=== PATIENT | female | born 2000 | race Asian ===

== ENCOUNTER 2023-11-06 14:30 | Outpatient (REF) | payer OTHER, SELFPAY ==
[2023-11-07 03:37] LABS: CT PCR NOT DETECTED (Not Detect.); NG PCR NOT DETECTED (Not Detect.)
[2023-11-07 11:12] LABS: BV Int Neg Control Negative (Negative); BV Int Pos Control Positive (Positive)
== END 2023-11-06 14:31 | disposition home or self-care (01) ==
LOC: HO.LNP 14:30
PROVIDERS: PCP Pediatrics; Visit Provider Advanced Practice Midwife
DX: Z01.419 Encounter for gynecological examination (general) (routine) without abnormal findings (principal); Z20.2 Contact with and (suspected) exposure to infections with a predominantly sexual mode of transmission
CPT/HCPCS: 0353U; 87480; 87510; 87660; 88142

== ENCOUNTER 2023-11-06 14:30 | Outpatient (AMB) | payer OTHER, SELFPAY ==
--- NOTE | 2023-11-06 14:34 | A.OFFVIS_ITS ---
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 She does not want implants and she does not want any IUD inside her she is on control pills but she keeps forgetting and taking them at different times she is here with her mother who accompanied her younger sister for visit recently as well. She does not want to have a baby any time soon she is sexually active she says the last time she had sex was a week ago before her periods started her periods started on October 31 it started a little bit before the last row of pills in the pill pack she is taking she says she has been trying to be better about taking the pills this month but she wants Depo-Provera she says her. Before this was at the end of August sometime after [place]. She also has something that has like a skin tag on her labia that she wants to show me and see if it can be cut off. She was with her mother throughout the visit. She is also interested in STD testing [facility], [facility] Social History (Updated 11/06/23 @ 14:39 by TANNA Santiago) Substance Use Type: Marijuana Female Reproductive History Menstrual Age of Menarche: 14 Duration of menses: other Date of last menstrual period: 10/31/23 control method: pills Total pregnancies: 0 Physical Exam Vital Signs: Last Vital Signs BP 102/60 11/06/23 14:36 BMI result Body Mass Index 19.0 Const General: healthy appearing, comfortable, no acute distress, well developed and alert Nutritional Appearance: average body habitus Orientation/consciousness: patient oriented x3 Limitations: no limitations HEENT Head: Yes normocephalic Neck Neck: Yes normal visual inspection Thyroid: Thyroid normal Chest Chest palpation & inspection: normal inspection of the chest Breast/axilla inspection: normal inspection of the breasts and normal inspection of the axillae Breast/axilla palpation: normal palpation of the breasts and normal palpation of the axillae Resp Effort & Inspection: normal respiratory effort GI Inspection: Yes normal to inspection, No Abdominal wall edema and No distended Palpation (GI): Soft to palpation and nontender Other: Normal external exam with the exception of a 3 cm round soft pedunculated sac- like growth to the left of her labia majora that has skin texture and coloration consistent with the labia majora. It is nontender not inflamed. Vagina pink and moist with moderate menses. Cervix nulliparous gently absorbed some menstrual blood with cotton swab in attempt to do Pap smear and testing for STIs. Cervix is nulliparous long close thick mobile nontender uterus small midposition nontender good tone with Kegel. General: Yes bladder normal to palpation External Female Exam: normal external appearance and normal appearance of the urethra Speculum Exam - Vagina: normal appearance of the vagina, normal palpation, normal vaginal discharge, vaginal bleeding (Consistent with menses) and other (3 cm round pedunculated growth consistent with labia majora skin, left side) Speculum Exam - Cervix: normal appearance of the cervix, normal palpation and nontender Bimanual exam- vagina & uterus: normal bimanual exam, normal palpation, uterine size normal, bladder normal to palpation, consistency normal, normal palpation, uterine mobility normal, uterine shape normal, No Cervical tenderness present, non-tender and no cervical motion tenderness Bimanual Exam- Adnexa, other: normal adnexae, no masses, normal and No adnexal tenderness OB/external & speculum: vaginal bleeding (Consistent with menses) Neuro General: patient oriented x3 Assessment & Plan Assessment & Plan (1) Encounter for screening examination for sexually transmitted disease: Code(s): Z11.3 - Encounter for screening for infections with a predominantly sexual mode of transmission (2) Abnormal skin growth: Code(s): D49.2 - Neoplasm of unspecified behavior of bone, soft tissue, and skin (3) Cervical cancer screening: Code(s): Z12.4 - Encounter for screening for malignant neoplasm of cervix (4) Well woman exam with routine gynecological exam: Code(s): Z01.419 - Encounter for gynecological examination (general) (routine) without abnormal findings (5) control counseling: Code(s): Z30.09 - Encounter for other general counseling and advice on contraception (6) Counseling for initiation of control method: Code(s): Z30.09 - Encounter for other general counseling and advice on contraception Plan -----Discussed in this visit the following: healthy balanced diet, regular and consistent exercise, getting recommended health screens, doing the best she can for her particular health concerns, kegel exercises, pap smear screening and followup recommendations, mammography screening and SBE, normal changes in cycles in her life stage--- .-I reviewed with the patient, all of the currently common used methods of control that are available. We reviewed how they work in the body, how they are taken, common side effects, uncommon side effects, precautions, and contraindications. -Discussed also factors that influence their effectiveness and use, and womens satisfaction with the method. -Discussed how each are used, and drawbacks of each method as well. -Methods covered included: condoms, control pills, control patches, control rings, Depo-Provera, Nexplanon, Mirena and Kyleena IUDs, and ParaGard IUDs. She was pretty clear she did not want a Nexplanon or any of the IUDs and she has not been doing well on remembering the pills or anything. All of the above methods were covered in great detail including their side effect profiles and common experiences that women have and ways to mitigate against the negative experiences including attention to diet and exercise patient's with bleeding challenges that may occur her and efforts to time the initiation of the method to this start of the menstrual period. She was pretty clear she wanted the Depo-Provera I reviewed the side effects to be concerned about including weight gain with urged to eat somewhat less healthy foods. Discussed nutrition and including calcium intake and making sure she is active to protect her bones and discussed the interplay. Discussed the menstrual effects and possible this appearance of menses discussed that if she is late with the Depo it is more likely to return and that she would need to start all over again with assurance that she has not before giving the next Depo. She feels pretty sure she would be able to keep the appointments to get the Depo placed every 12 weeks she says she has her own car and she drives everybody everywhere she lives in [place] and goes to [employer] especially full days on Tuesdays and but she drives her mom to [place] as well where her mom works in the pharmacy. Discussed the timing of starting this Depo because she is on her menses and has not had sex since before the periods started over a week ago this would be an ideal time to start the Depo they are going to try and supervisor opening and picking the Depo today at the pharmacy and endeavor to get an appointment tomorrow afternoon after school for her 1st Depo shot with the nurses at the hospital if this can not be accommodated then Saturday and I recommend strongly no unprotected sex until the Depo is been in for couple of weeks. In terms of the vaginal growth that has been there for a couple of years she permitted her mother to look at it and after some discussion of her brother who has some issue as well they made a mutual decision to make an appointment with her poker manager and permit her to see it and allow appropriate referral with the [facility] system She believes she has been vaccinated for the HPV virus. It will be interesting to see if this has any relationship to exposure to the HPV virus, or any other virus though it is absolutely not a wart. Patient wanted to get tested for STIs but today they are going to run supervisor opening and picking the Depo and tomorrow she may not have time she can get them done at the lab whenever it is convenient for her. Orders: Orders Bacterial Vaginosis Panel Today Z11.3 - Encounter for screening for infections with a predominantly sexual mode of transmission Pap Smear Today Z12.4 - Encounter for screening for malignant neoplasm of cervix Hepatitis B Surface Antigen Today Z11.3 - Encounter for screening for infections with a predominantly sexual mode of transmission Syphilis Screen Today Z11.3 - Encounter for screening for infections with a predominantly sexual mode of transmission CT NG by PCR Today Z11.3 - Encounter for screening for infections with a predominantly sexual mode of transmission Hepatitis C Antibody Today Z11.3 - Encounter for screening for infections with a predominantly sexual mode of transmission HIV Ab/Ag Today Z11.3 - Encounter for screening for infections with a predominantly sexual mode of transmission Medications: New medroxyprogesterone (Depo-Provera) Start pepito with this menses 150 mg IM Q12W 1 mL 5RF Coding Level of Care Code New Pt Prev Care 18-39yr(79176 Diagnoses Encounter for screening examination for sexually transmitted disease Z11.3 Abnormal skin growth D49.2 Cervical cancer screening Z12.4 Well woman exam with routine gynecological exam Z01.419 control counseling Z30.09 Counseling for initiation of control method Z30.09
[2023-11-06 14:36] VITALS: BP 102/60; BMI 19.0
== END 2023-11-06 15:32 | disposition home or self-care (01) ==
LOC: HO.HWSM 14:30
PROVIDERS: PCP Pediatrics; Visit Provider Advanced Practice Midwife
DX: Z01.419 Encounter for gynecological examination (general) (routine) without abnormal findings (principal)
CPT/HCPCS: 99385

== ENCOUNTER 2023-11-07 14:59 | Outpatient (AMB) | payer OTHER, SELFPAY ==
--- NOTE | 2023-11-07 15:12 | AM.OFFVISNUR ---
Intake Vital Signs 11/07/23 15:13 Height 4 ft 10 in Weight 41.276 kg BMI 19.0 Intake Visit Reasons: DEPO Allergies No Known Allergies Allergy (Verified 11/06/23 14:38) Nursing Note Malu is here today with her Depo-Provera medication in a sealed bag. UHCG today is Neg. this is her first injection. She was advised to stop her OCP's. Pt reports she only took a ''sugar pill this am''. Discussed with pt use of condoms for the first two weeks of being on Depo-Provera, and needs to be seen q 12 weeks for her injections. Pt verbs understanding. Office Procedures Depo Questionnaire If YES to any of the following questions, please consult a provider. Date of last injection: 11/07/23 Date of last menstrual period: 10/31/23 Date of last gynecology exam: 11/06/23 Menstrual pattern since last injection has been: Not Applicable test in office results: Negative Irregular bleeding?: No Breast lumps or other breast changes?: No Changes in weight or appetite?: No Depression or changes in mood?: No Abnormal hair growth or loss?: No Skin problems (rash, acne, discoloration)?: No Pain at the injection site?: No Headaches?: No Nervousness?: No Abdominal pain or cramping?: No Dizziness or nausea?: No Fatigue or weakness?: No Decrease in sexual drive?: No Chest pain or shortness of breath?: No Swelling in arms or legs?: No Form completed by?: Levy Hernandez LPN Office Meds Depo-Provera 150 mg/mL intramuscular syringe Performing Provider: Idalia Freed CNM Performing Location: [facility] [place] [facility] Administered by: Laurie Hernandez LPN on 11/07/23 15:13 Dose Route Admin Location Dispensed Lot Number Expiration Date [facility] Bridges Supervisor 150 mg IM lt. deltoid 1 mL [id number] 01/27/25 [address]-4 [facility] Results AMB Test Urine AMB Test Urine Negative Last Edit by Laurie Hernandez LPN on 11/07/23 15:17 Coding Level of Care Code Established Pt Est Pt Level 1 (31690) Patient Type Established History Problem Focused Exam Problem Focused Medical Decision Making Straight Forward Time Spent (min) 20 Assessment & Plan Assessment & Plan Orders: Orders AMB Medroxyprogesterone Injection Patient Supplied Today Z30.09 - Encounter for other general counseling and advice on contraception
[2023-11-07 15:13] VITALS: BMI 19.0
== END 2023-11-07 15:09 | disposition home or self-care (01) ==
LOC: HO.HWS 14:59
PROVIDERS: PCP Pediatrics; Visit Provider Advanced Practice Midwife
DX: Z30.09 Encounter for other general counseling and advice on contraception (principal)

== ENCOUNTER → 2023-11-07 14:59 | Outpatient (BNVA) | payer OTHER, SELFPAY | PROVIDERS: PCP Pediatrics; Visit Provider Advanced Practice Midwife | DX: Z30.42 Encounter for surveillance of injectable contraceptive (principal) | CPT/HCPCS: 96372; 99211; J1050 ==

== ENCOUNTER 2023-11-08 14:56 | Outpatient (REF) | payer OTHER, SELFPAY ==
[2023-11-09 03:39] LABS: Syphilis Screen Nonreactive (Nonreactive)
[2023-11-09 03:53] LABS: HBsAGNum1 0.29 S/CO (0.00-0.99); HIV AB/AG Nonreactive (Nonreactive); HIV Num 1 0.06 S/CO (0.00-0.99); Hepatitis B Surface Antigen Negative (Negative); ~HepC Num1 0.11 S/CO (0.00-0.79); ~Hepatitis C Antibody Nonreactive (Nonreactive)
== END 2023-11-08 14:57 | disposition home or self-care (01) ==
LOC: HO.LAB 14:56
PROVIDERS: PCP Pediatrics; Visit Provider Advanced Practice Midwife
DX: Z11.4 Encounter for screening for human immunodeficiency virus [HIV] (principal); Z20.2 Contact with and (suspected) exposure to infections with a predominantly sexual mode of transmission
CPT/HCPCS: 36415; 86780; 86803; 87340; 87389

== ENCOUNTER 2024-01-24 14:48 | Outpatient (AMB) | payer OTHER, SELFPAY ==
[2024-01-24 15:25] VITALS: BMI 19.6
--- NOTE | 2024-01-24 15:25 | AM.OFFVISNUR ---
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 She reports she has had irregular spotting since her first injection 11/07/23. No other c/o. Pt was reassured it is common to have irregular bleeding/spotting as her body acclimates to the new medication. She was advised to monitor the bleeding/spotting and if her bleeding becomes heavy (if she saturates through a large pad in 1 hour or more frequently) or develops any unusual symptoms or other concerns, she should call the office or go to the ED for evaluation. Pt verbalizes understanding and agrees with plan. She will schedule her next injection in 12 weeks. Office Procedures Depo Questionnaire If YES to any of the following questions, please consult a provider. Date of last injection: 11/07/23 Date of last gynecology exam: 11/06/23 Menstrual pattern since last injection has been: Not Applicable Irregular bleeding?: Yes Breast lumps or other breast changes?: No Changes in weight or appetite?: No Depression or changes in mood?: No Abnormal hair growth or loss?: No Skin problems (rash, acne, discoloration)?: No Pain at the injection site?: No Headaches?: No Nervousness?: No Abdominal pain or cramping?: No Dizziness or nausea?: No Fatigue or weakness?: No Decrease in sexual drive?: No Chest pain or shortness of breath?: No Swelling in arms or legs?: No Form completed by?: Janet Mari RN Office Meds Depo-Provera 150 mg/mL intramuscular syringe Performing Provider: Idalia Freed CNM Performing Location: [facility] [place] [facility] Administered by: Janet Mari on 01/24/24 15:33 Dose Route Admin Location Dispensed Lot Number Expiration Date [facility] Healthcare Receptionist 150 mg IM left deltoid 1 mL [id number] 01/27/25 [address]-2 [facility] Coding Level of Care Code Established Pt Est Pt Level 1 (83339) Patient Type Established History Problem Focused Medical Decision Making Straight Forward Time Spent (min) 13 Assessment & Plan Assessment & Plan Orders: Orders AMB Medroxyprogesterone Injection Patient Supplied Today Z30.42 - Encounter for surveillance of injectable contraceptive Medications: New Depo-Provera (medroxyprogesterone) 150 mg IM ONCE 1 mL 0RF NS Z30.42 - Encounter for surveillance of injectable contraceptive
== END 2024-01-24 15:20 | disposition home or self-care (01) ==
PROVIDERS: PCP Pediatrics; Visit Provider Advanced Practice Midwife
DX: Z30.42 Encounter for surveillance of injectable contraceptive (principal)

== ENCOUNTER → 2024-01-24 14:48 | Outpatient (BNVA) | payer OTHER, SELFPAY | PROVIDERS: PCP Pediatrics; Visit Provider Advanced Practice Midwife | DX: Z30.42 Encounter for surveillance of injectable contraceptive (principal) | CPT/HCPCS: 96372; 99211; J1050 ==

== ENCOUNTER 2024-04-13 14:49 | Outpatient (AMB) | payer OTHER, SELFPAY ==
[2024-04-13 15:10] VITALS: BMI 19.3
--- NOTE | 2024-04-13 15:10 | AM.OFFVISNUR ---
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 No c/o. She reports light bleeding irregularly. Pt tolerated injection well. She will schedule her next injection in 12 weeks. Pt verbalizes understanding and agrees with plan. No further questions. Office Procedures Depo Questionnaire If YES to any of the following questions, please consult a provider. Date of last injection: 01/24/24 Date of last gynecology exam: 11/06/23 Menstrual pattern since last injection has been: Light Irregular bleeding?: No Breast lumps or other breast changes?: No Changes in weight or appetite?: No Depression or changes in mood?: No Abnormal hair growth or loss?: No Skin problems (rash, acne, discoloration)?: No Pain at the injection site?: No Headaches?: No Nervousness?: No Abdominal pain or cramping?: No Dizziness or nausea?: No Fatigue or weakness?: No Decrease in sexual drive?: No Chest pain or shortness of breath?: No Swelling in arms or legs?: No Form completed by?: Janet Mari RN Office Meds Depo-Provera 150 mg/mL intramuscular syringe Performing Provider: Idalia Freed CNM Performing Location: [facility] [place] [facility] Administered by: Janet Mari on 04/13/24 15:13 Dose Route Admin Location Dispensed Lot Number Expiration Date [facility] Medical Technologist Clinical 150 mg IM Left deltoid 1 mL [id number] 01/27/25 [address]-4 [facility] Assessment & Plan Assessment & Plan Orders: Orders AMB Medroxyprogesterone Injection Patient Supplied Today Z30.42 - Encounter for surveillance of injectable contraceptive Medications: New Depo-Provera (medroxyprogesterone) 150 mg IM ONCE 1 mL 0RF NS Z30.42 - Encounter for surveillance of injectable contraceptive
== END 2024-04-13 15:07 | disposition home or self-care (01) ==
LOC: HO.HWS 14:49
PROVIDERS: PCP Pediatrics; Visit Provider Advanced Practice Midwife
DX: Z30.42 Encounter for surveillance of injectable contraceptive (principal)

== ENCOUNTER → 2024-04-13 14:49 | Outpatient (BNVA) | payer OTHER, SELFPAY | PROVIDERS: PCP Pediatrics; Visit Provider Advanced Practice Midwife | DX: Z30.42 Encounter for surveillance of injectable contraceptive (principal) | CPT/HCPCS: 96372; J1050 ==

== ENCOUNTER 2024-06-29 14:57 | Outpatient (AMB) | payer OTHER, SELFPAY ==
[2024-06-29 15:09] VITALS: BMI 19.7
--- NOTE | 2024-06-29 15:09 | AM.OFFVISNUR ---
Vital Signs 06/29/24 15:09 Height 4 ft 10 in Weight 42.751 kg BMI 19.7 Intake Visit Reasons: depo Allergies No Known Allergies Allergy (Verified 11/06/23 14:38) Nursing Note Malu is here today for her scheduled Depo-Provera inj. She reports soptting since her last shot, sometimes dark brown then just small spots of red blood. Pt had her menses on 06/25/24. This is pts 4 th inj. She was advised to call office if still having intermittent bleeding after this injection. Pt verbs understanding. Office Procedures Depo Questionnaire If YES to any of the following questions, please consult a provider. Date of last injection: 04/13/24 Date of last menstrual period: 06/25/24 Date of last gynecology exam: 11/06/23 Menstrual pattern since last injection has been: Light Irregular bleeding?: Yes (spotting on and off since last shot) Breast lumps or other breast changes?: No Changes in weight or appetite?: No Depression or changes in mood?: No Abnormal hair growth or loss?: No Skin problems (rash, acne, discoloration)?: No Pain at the injection site?: No Headaches?: No Nervousness?: No Abdominal pain or cramping?: No Dizziness or nausea?: No Fatigue or weakness?: No Decrease in sexual drive?: No Chest pain or shortness of breath?: No Swelling in arms or legs?: No Any other problems or concerns?: spotting from last inj on and off then started menses a few days ago. Form completed by?: Levy Hernandez LPN Office Meds Depo-Provera 150 mg/mL intramuscular syringe Performing Provider: Idalia Freed CNM Performing Location: [facility] [place] [facility] Administered by: Laurie Hernandez LPN on 06/29/24 15:10 Dose Route Admin Location Dispensed Lot Number Expiration Date [facility] Basic Acoustic Analyst 150 mg IM rt. deltoid 1 mL [id number] 01/27/25 [address]-2 [facility] Assessment & Plan Assessment & Plan Orders: Orders AMB Medroxyprogesterone Injection Patient Supplied Today Z30.42 - Encounter for surveillance of injectable contraceptive Medications: New Depo-Provera (medroxyprogesterone) 150 mg IM ONCE 1 mL 0RF NS Z30.42 - Encounter for surveillance of injectable contraceptive
== END 2024-06-29 15:18 | disposition home or self-care (01) ==
PROVIDERS: PCP Pediatrics; Visit Provider Advanced Practice Midwife
DX: Z30.42 Encounter for surveillance of injectable contraceptive (principal)

== ENCOUNTER → 2024-06-29 14:57 | Outpatient (BNVA) | payer OTHER, SELFPAY | PROVIDERS: PCP Pediatrics; Visit Provider Advanced Practice Midwife | DX: Z30.42 Encounter for surveillance of injectable contraceptive (principal) | CPT/HCPCS: 96372; 99211; J1050 ==

== ENCOUNTER 2024-09-14 14:45 | Outpatient (AMB) | payer OTHER, SELFPAY ==
[2024-09-14 14:53] VITALS: BMI 20.1
--- NOTE | 2024-09-14 14:53 | AM.OFFVISNUR ---
Vital Signs 09/14/24 14:53 Height 4 ft 10 in Weight 96 lb 4 oz BMI 20.1 Intake Visit Reasons: depo Allergies No Known Allergies Allergy (Verified 11/06/23 14:38) Nursing Note Malu is here today for her 5th injection, she reports she has heavy bleeding 2x month and then spotting almost every day. Pt wanted to proceed with Depo-Provera inj today. Pt was informed i will send Idalia a message regarding her irr bleeding, and she may need in person or TV with provider. Pt verbs understanding. Office Procedures Depo Questionnaire If YES to any of the following questions, please consult a provider. Date of last injection: 06/29/24 Date of last menstrual period: 08/31/24 Date of last gynecology exam: 11/06/23 Menstrual pattern since last injection has been: Heavy Irregular bleeding?: Yes Breast lumps or other breast changes?: No Changes in weight or appetite?: No Depression or changes in mood?: No Abnormal hair growth or loss?: No Skin problems (rash, acne, discoloration)?: No Pain at the injection site?: No Headaches?: No Nervousness?: No Abdominal pain or cramping?: No Dizziness or nausea?: No Fatigue or weakness?: No Decrease in sexual drive?: No Chest pain or shortness of breath?: No Swelling in arms or legs?: No Form completed by?: Levy bolanos LPN Office Meds Depo-Provera 150 mg/mL intramuscular syringe Performing Provider: Idalia Freed CNM Performing Location: [facility] [place] [facility] Administered by: Laurie Bolanos LPN on 09/14/24 15:00 Dose Route Admin Location Dispensed Lot Number Expiration Date [facility] Shop Service Technician 150 mg IM rt. deltoid 1 mL [id number] 01/27/25 [address]-1 [facility] Assessment & Plan Assessment & Plan Orders: Orders AMB Medroxyprogesterone Injection Patient Supplied Today Z30.42 - Encounter for surveillance of injectable contraceptive Medications: New Depo-Provera (medroxyprogesterone) 150 mg IM ONCE 1 mL 0RF NS Z30.42 - Encounter for surveillance of injectable contraceptive
== END 2024-09-14 14:52 | disposition home or self-care (01) ==
LOC: HO.HWS 14:45
PROVIDERS: PCP Pediatrics; Visit Provider Advanced Practice Midwife
DX: Z30.42 Encounter for surveillance of injectable contraceptive (principal)

== ENCOUNTER 2024-12-03 14:48 | Outpatient (AMB) | payer OTHER, SELFPAY ==
--- NOTE | 2024-12-03 15:13 | AM.OFFVISNUR ---
Vital Signs 12/03/24 15:20 Height 4 ft 10 in Weight 97 lb 4 oz BMI 20.3 Intake Visit Reasons: DEPO Certified Optician Required: No Allergies No Known Allergies Allergy (Verified 11/06/23 14:38) Nursing Note Malu is here for her scheduled Depo provera injection. Last Depo injection was 09/14/24 and she had reported to Laurie that she was still having irregular bleeding despite being on Depo since 11/07/23. She had a discussion with Idalia on 09/16/24 about trying BCPs instead of Depo injections and was prescribed pills for 1 month to see if the bleeding would stop. She reports that the bleeding did stop during the second week of taking pills and started again yesterday, 12/02/24. Pt has had discussions with her mother about stopping all control now and is just not comfortable putting anything in her body that she does not need. She is currently not sexually active. Depo injection was not given today. Pt is due for AG now and she will schedule another appt. to see Idalia. She can discuss her concerns with Idalia at that time. Pt was advised that she should use condoms if she becomes intimate to prevent and provide protection of STDs. Pt verbalizes understanding and agrees with plan. No further questions. Assessment & Plan Assessment & Plan (1) Encounter for Depo-Provera contraception: Code(s): Z30.42 - Encounter for surveillance of injectable contraceptive Category: Medical Coding Level of Care Code Established Pt Est Pt Level 1 (08305) Patient Type Established History Problem Focused Medical Decision Making Straight Forward Diagnoses Encounter for Depo-Provera contraception Z30.42 Time Spent (min) 10 Comment
[2024-12-03 15:20] VITALS: BMI 20.3
--- OUTSIDE RECORDS SUMMARY | 2024-12-03 18:19 | XMS_ITS | Encounter Summary ---
Author Organization [facility] Address [address] [place] [address] Phone Care Team Providers Care Acting Instructor Name Role Phone Vivienne King MD Primary Care Provider [phone] Reason for Visit * Reason Comments Med Refill Encounter Details Date Type Department Care Team (Late st Contact Info) Description 01/02/2023 Refill [facility] [address] [address] [place] [address] Vivienne King MD [address] [facility] [address] [place] [address] Encounter for surveillance of contraceptive pills Social History Tobacco Use Types Packs/Day Years Used Date Smoking Tobacco: Every Day Hunger/Food Answer Date Recorded In the last 12 months, did y ou or your family ever eat less than you felt you should because there wasn't enough money for food? No 03/05/2022 Stable Housing Answer Date Recorded Are you worried that in the next 2 months you may not have stable housing? No 03/05/2022 Transportation Concerns Answer Date Rec orded In the last 12 months, have you or your family ever had to go without healthcare because you didn't have a way to get there? No 03/05/2022 Hazards in Home Answer Date Recorded Think about the place you li ve. Do you have problems with any of the following? Pests (mice or roaches), mold, no/not working smoke detectors, water leaks, no window guards. No 2021 Financing Utilities Answer Date Recorde d In the last 12 months, has t he electric, gas, oil, or water company threatened to shut off your services in your home? No 03/05/2022 Safety at Home Answer Date Recorded Are you or your family worried about feeling saf e in your home? No 03/05/2022 Outside Support Answer Date Recorded Do you feel that you need mo re support from other people or programs to help you care for yourself or your family? No 03/05/2022 Understanding Health Concerns Answer Da te Recorded Do you need help understandi ng your or your child's healthcare needs (diagnosis, medications, plan, etc.)? No 03/05/2022 Financing Health Concerns Answer Date R ecorded In the last 12 months, was t here a time when your child needed to see a doctor or get medications or supplies but could not because of cost? No 03/05/2022 Missing School or Work Answer Date Yemi rded Did you or your child miss s chool or work because of a health problem that could have been avoided? No 03/05/2022 Comments No Sex and Gender Information Value Date Recorded Sex Assigned at Not on file Legal Sex Female 4:09 PM EST Gender Identity Female 02/28/2021 1:22 PM EDT Sexual Orientation Not on file documented as of this encounter Miscellaneous Notes * Telephone Encounter - Jovon Kirkland [place] - 01/02/2023 1:[address] [facility] on 03/07/22, has one scheduled 03/19/23. Multiple messages sent to schedule med review. To pcp for refusal documented in this encounter Plan of Treatment Not on file documented as of this encounter Visit Diagnoses Diagnosis Encounter for surveillance of contraceptive pills documented in this encounter Care Teams Acting Instructor Relationship Specialty Start Date End Date Vivienne King MD [address] [place] [address] [address] [place] [address] PCP - General Pediatrics 12/15/20 documented as of this encounter
--- OUTSIDE RECORDS SUMMARY | 2024-12-03 18:19 | XMS_ITS | Clinical Summary ---
Author Organization [facility] Address [address] [place] [address] Phone Care Team Providers Care Drier And Evaporator Operator Name Role Phone Vivienne King MD Primary Care Provider [phone] Allergies No known active allergies Medications medroxyPROGEST ERone 150 MG/ML injection 150 MG INTRAMUSCULARLY EVERY 12 WEEKS START RHIANNA WITH THIS MENSES 11/06/19 24 Active Active Problems Problem Noted Date Diagnosed Date Anxiety and depression 03/07/2022 Assessment & Plan (03/19/2023 1:06 PM EDT): Stopped 2 months ago, wanted to stop and didn't feel she needed it. Has been feeling fine since. She is not in therapy. She does not feel she needs any further interventions. PHQ9 still positive for moderate depression. She will let us know if she needs further assistance. Assessment & Plan (12/20/2022 4:14 PM EDT): Worsening anxiety and depression. She feels she is ready to commit to therapy and medication and other steps to improve her mood. Will try Lexapro 10mg daily. Will monitor for side effects including increasing depression or any suicidal thoughts. She met with Laeh and will resume BH. Assessment & Plan (04/03/2022 10:46 AM EDT): On Buproion XL 150mg daily for about 1 month for anxiety and depression as well as to aid in smoking cessation. She notes a lot of improvement in mood. PHQ9 and Gad7 reflect this - now normal. She finds that she has more energy during the day and has more motivation to do things. She has not had any side effects from medication. She met with Leah and plans to check in with her in April. She also has made changes to her plans, no longer returning to school in [place] for the fall. This has been a relief for her. Plan to continue same dose of medication without change at this time. Will regroup in 3 months. Assessment & Plan (03/07/2022 5:53 PM EDT): Increasing symptoms of anxiety and depression in past year. May be related to deep dissatisfaction and unhappiness with college at [employer]. She has moved back home and will likely seek a college situation in the area. She thinks she is already feeling better. She is using nicotine and marijuana daily to treat symptoms. She has agreed to start Bupropion and to meet with Leah again. Her GAD7 and PHQ 9 are both positive. Failed vision screen 03/07/2022 Assessment & Plan (03/19/2023 11:48 AM EDT): Saw eye doctor last year. Never filled glasses prescription. Recommend returning for f/u exam. Assessment & Plan (03/07/2022 5:52 PM EDT): Recommend vision exam - she will check with optometry in [place]. Marijuana use, continuous 03/07/2022 Assessment & Plan (03/19/2023 1:08 PM EDT): She continues to use daily but less than before. She uses by joint or bong about 3x's/day. She is feeling better overall without nausea and having gained some weight, better appetite. We discussed risks of daily use. Recommended reducing use more to social and maybe 1-2x's/week. She will try to reduce. Offered therapy or other help with stopping but she declined. Assessment & Plan (04/03/2022 10:47 AM EDT): Has been able to reduce use of marijuana although still using daily and sometimes 2x's/day. We discussed that to reduce risk it would be better if she were using less frequently, maybe just in a social situation on weekends. She will continue to try to wean herself from marijuana use. Assessment & Plan (03/07/2022 5:52 PM EDT): Using 3x's/day along with nicotine with partner. We discussed the need to reduce risk by reducing use of marijuana. She will try to cut back as she cuts back on vaping nicotine. Resolved Problems Problem Noted Date Diagnosed Date Resolved Date Cannabinoid hyperemesis syndrome 12/20/2022 03/19/2023 Assessment & Plan (12/20/2022 4:13 PM EDT): We discussed that her nausea is likely related to overuse of marijuana and that the only way to find improvement is to discontinue use. She denies needing assistance with stopping marijuana. Vaping nicotine dependence, tobacco product 03/07/2022 12/20/2022 Assessment & Plan (04/03/2022 10:48 AM EDT): Has significantly reduced use of vaping nicotine. Vaping now only once/ day or every other day. Mom has also been supportive and helped provide alternatives. I congratulated her on her progress and suggested she continue to reduce use or quit altogether if possible. Assessment & Plan (03/07/2022 5:51 PM EDT): Vaping 3 x's daily every day. We discussed reducing risk by cutting back or quitting entirely. She is interested somewhat. She is not interested in [employer]. Will try Bupropion - rx sent.. Also will regroup with Ali about some behavioral techniques that may help. Musculoskeletal chest pain 01/01/2022 0 03/07/2022 Assessment & Plan (01/01/2022 2:11 PM EDT): She overall is much better. Reassured. Followup if recurs. Told has mild anemia on her labs. Could be due to Hemoglobin E, illness or mild iron deficiency. Recommended multivitamin with IRon History of COVID-19 10/14/2020 12/21/19 Overview (10/10/2021): Diagnosed at [facility] 10/14/20. Tired but no other major symptoms. Lasted a few days. Exposed again on 09/30/20. PCR pending. Assessment & Plan (03/07/2022 5:47 PM EDT): Fully recovered. Assessment & Plan (02/28/2021 3:36 PM EDT): Mild covid illness. No residual symptoms. Encounter for surveillance o f contraceptive pills 05/27/2019 02/28/2021 Overview (05/27/2019): Interested in trial of OBCPs for acne and due to irregular menses ( associated with dysmenorrhea). Assessment & Plan (07/30/2019 8:45 AM EDT): Doing well so far on prescribed OCP, initiated by PCP. Has only had one period thus far, though it came on time. Today she noted some mild spotting, though this was the first day this happened. Overall happy with response right now. Discussed changing dosing to nighttime to see if this helps the nausea. Mild weight gain noted, though not excessive or bothersome. No other ASE. Wants to continue, which I feel is reasonable. Provided another 3 month supply. Requested [facility] call at the end of those refills - if menses has remained regular without consistent spotting, nausea or concerns - I will provide further refills to last until next hme. IF she continues to expereince nausea, spotting or any other concerns - recommended she regroup for another medication review to possible change the OCP. Of course call sooner with any new or worsened concerns. Reviewed use, no smoking, etc. She is not sexually active, though we reviewed need for condom use for STI prevention in the future. Pt agreeable to plan, verbalized understanding. Assessment & Plan (05/27/2019 5:07 PM EDT): Interested in trial of OBCPs for acne and due to irregular menses ( associated with dysmenorrhea). Discussed. Read handout on care. Not sexually active currently. LMP 05/08/2019. Return for follow-up visit with Adriana Palmer in 6 weeks. Acne vulgaris 10/23/2017 03/07/2022 Overview (05/27/2019): Ongoing acne, but not treated consistently. Now using benzoyl peroxide most days ( previously treated with tretinoin as well). Interested in OBCPs due to irregular periods; this medication was very helpful for mother when she had acne. Assessment & Plan (02/28/2021 3:36 PM EDT): On OCPs now alone and doing well with good acne control. Still with scarring on forehead but she declines need for further treatment. Assessment & Plan (07/30/2019 8:45 AM EDT): No response yet, though discussed it will likely take a few more cycles to know. She will call if no adequate response with the next few cycles. Assessment & Plan (05/27/2019 4:58 PM EDT): Ongoing acne, but not treated consistently. Now using benzoyl peroxide most days ( previously treated with tretinoin as well). Interested in OBCPs due to irregular periods; this medication was very helpful for mother when she had acne. Follow clinically. Continue present management. Regroup at medication follow-up in 6 weeks Assessment & Plan (03/27/2018 4:40 PM EDT): The current medical regimen is effective; continue present plan and medications. Typically treats with tretinoin 3x per week with good results. Assessment & Plan (10/23/2017 5:37 PM EST): Avoid anything that aggravates your acne. Use caution with cosmetics, skin cleansers and hair products. Read the handout on how to use your acne medications . Be patient, acne treatments may take 4-8 weeks to show improvement. Return for reassessment in 2 months. 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 [place] to be consistent with familial/ constitutional short stature. Appropriate growth velocity over time. Assessment & Plan (03/27/2018 4:43 PM EDT): Evaluated for short stature/ FTT with normal screening studies. [place] to be consistent with familial/ constitutional short stature. Appropriate growth velocity over time. Now T4 and 4' 9.5 ( near adult height) Assessment & Plan (01/25/2017 2:49 PM EDT): Follow over time, some additional growth is possible ( but limited) Immunizations Immunization Administration Dates Next Due COVID-19 Pfizer, monovalent, 12+ years 1,01/28/2021 DTaP 5 06/10/2006, 4,2002,09/15,2002 H1N1 Nasal 07/26/2009 HPV Vaccine 9 Valent 03/19/2023,03/07/2022,02/28 Hep A, Adult 03/07/2022 Hep A, ped/adol 02/28/2021 Hep B, ped/adol 03/05/2003,2002,2002 Hib (HbOC) 05/09/2004, 3,2002,07/15 IPV 06/10/2006, 3,2002,07/15 Influenza Split 08/24/2008 Influenza, injectable, quadr ivalent, preservative free 07/31/2021,07/06/2020 MMR 06/10/2006,05/09/2004 Meningococcal Conj (Menactra) MCV4P 02/28/2021,0 10/30/2013 Pneumococcal Conjugate 2002,2002, Tdap 10/30/2013 Varicella 06/11/2007,06/10/2003 Social History Tobacco Use Types Packs/Day Years Used Date Smoking Tobacco: Every Day Hunger/Food Answer Date Recorded In the last 12 months, did y ou or your family ever eat less than you felt you should because there wasn't enough money for food? No 03/18/2023 Stable Housing Answer Date Recorded Are you worried that in the next 2 months you may not have stable housing? No 03/18/2023 Transportation Concerns Answer Date Rec orded In the last 12 months, have you or your family ever had to go without healthcare because you didn't have a way to get there? No 03/18/2023 Hazards in Home Answer Date Recorded Think about the place you li ve. Do you have problems with any of the following? Pests (mice or roaches), mold, no/not working smoke detectors, water leaks, no window guards. No 2022 Financing Utilities Answer Date Recorde d In the last 12 months, has t he electric, gas, oil, or water company threatened to shut off your services in your home? No 03/18/2023 Safety at Home Answer Date Recorded Are you or your family worried about feeling saf e in your home? No 03/18/2023 Outside Support Answer Date Recorded Do you feel that you need mo re support from other people or programs to help you care for yourself or your family? No 03/18/2023 Understanding Health Concerns Answer Da te Recorded Do you need help understandi ng your or your child's healthcare needs (diagnosis, medications, plan, etc.)? No 03/18/2023 Financing Health Concerns Answer Date R ecorded In the last 12 months, was t here a time when your child needed to see a doctor or get medications or supplies but could not because of cost? No 03/18/2023 Missing School or Work Answer Date Yemi rded Did you or your child miss s chool or work because of a health problem that could have been avoided? No 03/18/2023 Comments No Sex and Gender Information Value Date Recorded Sex Assigned at Not on file Legal Sex Female 4:09 PM EST Gender Identity Female 02/28/2021 1:22 PM EDT Sexual Orientation Not on file Last Filed Vital Signs Vital Sign Reading Time Taken Comments Blood Pressure 106/62 11/15/2023 11:56 AM EST Pulse 83 11/15/2023 11:56 AM EST Temperature 36.8 ??C (98.2 ??F) 10/10/2018 4:00 PM ES T Respiratory Rate - - Oxygen Saturation 99% 02/28/2021 1:42 PM EDT Inhaled Oxygen Concentration - - Weight 41.9 kg (92 lb 6 oz) 11/15/2023 11:56 AM EST Height 146 cm (4' 9.48 ) 03/19/2023 11:27 AM EDT Body Mass Index 19.66 03/19/2023 11:27 AM EDT Plan of Treatment Health Maintenance Due Date Last Done Comments HIV Screening 2017 Men B Vaccine (1 of 2 - Standard) 2018 Hepatitis C Screening 2020 DTaP,Tdap,and Td Vaccines (7 - Td or Tdap) 10/30/2023 10/30/2013, 06/10/2006, 05/09/2004, Additional history exists Influenza Vaccines (#1) 2024 07/31/20, 07/06/2020, 08/24/2008 COVID-19 Vaccine (2023-2 5 season) 2024 08/23/2021, 02/12/2021, 01/28/2021 Chlamydia and Gonorrhea Screening 09/30/2024 03/19/2023, 12/20/2022, 03/07/2022, Additional history exists Pneumococcal Vaccine Discontinued 2002, 2002, 2002 Hepatitis B Vaccines Completed 03/05/2003, 2002, 2002 HIB Vaccines Completed 05/09/2004, 01/2003, 2002, Additional history exists IPV Vaccines Completed 06/10/2006, 05/31, 2002, Additional history exists MMR Vaccines Completed 06/10/2006, 05/09/2004 Varicella Vaccines Completed 06/11/2007, 06/10/2003 Meningococcal Vaccine Completed 02/28/2021, 014 Hepatitis A Vaccines Completed 03/07/2022, 02/29/20 21 HPV Vaccines Completed 03/19/2023, 04/2022, 02/28/2021 Procedures * Due to [place] state law, this organization might not be sharing sensitive test results. Procedure Name Priority Date/Time Associated Diagnosis Comments CHLAMYDIA GC AMP PROBE Routine 03/19/2023 11:53 AM EDT Encounter for well adult exam with abnormal findings from Last 3 Months or Most Recently Relevant to Health Maintenance Results * Due to [place] state law, this organization might not be sharing sensitive test results. * CHLAMYDIA GC AMP PROBE (03/19/2023 11:53 AM EDT) Chlamydia Trachomatis, Amplified NEGATIVE (NEG) [facility] Comment: No Chlamydia Trachomatis RNA detected in this patient's sample ? (REFERENCE RANGE/NORMAL VALUE: NOT DETECTED) ? Note: This test uses complementary health therapists- mediated amplification method to detect rRNA from C. Trachomatis N.GONORRHOEAE AMP PROBE NEGATIVE (NEG) [facility] Comment: No Neisseria Gonorrhoeae RNA detected in this patient's sample ? (REFERENCE RANGE/NORMAL VALUE: NOT DETECTED) ? NOTE: This test uses complementary health therapists-mediated amplification method to detect rRNA from N.Gonorrhoeae. A negative result does not preclude infection. In the case of a negative urine result, testing of an endocervical(female) or urethral (male) specimen is recommended if there is high clinical suspicion of infection. Due to very high sensitivity of Nucleic Acid Amplification Test, false positive results may occur. Therefore, specimen handling is extremely important. In patients in whom the disease is unlikely, additional sample for testing should be considered after an initial positive result. The performance characteristics of this test have not been evaluated in children. The Aptima Combo2 assay is not intended for the evaluation of suspected sexual abuse or for other medico-legal indications. The ordering provider should assess if the patient had consensual sex without risk of sexual abuse. Consult the [facility] if needed. Contact phone number . Therapeutic failure or success cannot be determined with the Aptima Combo2 assay since nucleic acid may persist following appropriate antimicrobial therapy. The Centers for Disease Control and Prevention (CDC) recommends confirmatory retesting using culture or a different nucleic acid amplification test when positive results occur, if indicated. CHLAM/GC AMP PROBE SPEC TYPE VAGINAL SPECIMEN [facility] Comment: Testing performed or reported by [facility], a Service of [facility], [facility] Benita Shabazz, [place] [address] Williams Adames MD, [employer] [facility]# [id number] 03/19/2023 11:5 3 AM EDT 03/19/2023 11:41 PM EDT Vivienne King MD LAB MICROBIOLOGY - GENERAL ORDER SHARON Final Result [facility] from Last 3 Months or Most Recently Relevant to Health Maintenance Insurance [facility] PCC [facility]ET[facility] NON PCC AETNA [facility] Care Teams Drier And Evaporator Operator Relationship Specialty Start Date End Date Vivienne King MD [address] [place] [address] PCP - General Pediatrics 12/15/20
--- OUTSIDE RECORDS SUMMARY | 2024-12-03 18:19 | XMS_ITS | Encounter Summary ---
Author Organization [facility] Address [address] [place] [address] Phone Care Team Providers Care Financial Accounting Analyst Name Role Phone Vivienne King MD Primary Care Provider [phone] Encounter Details Date Type Department Care Team (Late st Contact Info) Description 09/29/2012 Orders Only [facility], [address] [place] [address] Social History Tobacco Use Types Packs/Day Years Used Date Smoking Tobacco: Never Assessed Comments Unknown Sex and Gender Information Value Date Recorded Sex Assigned at Not on file Legal Sex Female 4:09 PM EST Gender Identity Female 02/28/2021 1:22 PM EDT Sexual Orientation Not on file documented as of this encounter Plan of Treatment Not on file documented as of this encounter Visit Diagnoses Not on filedocumented in this encounter Care Teams Financial Accounting Analyst Relationship Specialty Start Date End Date Vivienne King MD [address] [place] [address] [address] [place] [address] PCP - General Pediatrics 12/15/20 documented as of this encounter
--- OUTSIDE RECORDS SUMMARY | 2024-12-03 18:19 | XMS_ITS | Encounter Summary ---
Author Organization [facility] Address [address] [place] [address] Phone Care Team Providers Care Psychiatry Resident Name Role Phone Vivienne King MD Primary Care Provider [phone] Reason for Visit * Reason Comments Med Refill Encounter Details Date Type Department Care Team (Late st Contact Info) Description 02/19/2020 Refill [facility], [address] [place] [address] Randall Aldrich MD Acne vulgaris Social History Tobacco Use Types Packs/Day Years Used Date Smoking Tobacco: Passive Smo ke Exposure - Never Smoker Hunger/Food Answer Date Recorded No 05/27/2019 Stable Housing Answer Date Recorded No 10/03/2019 Transportation Concerns Answer Date Rec orded No 05/27/2019 Hazards in Home Answer Date Recorded No 05/27/2019 Financing Utilities Answer Date Recorde d No 05/27/2019 Safety at Home Answer Date Recorded No 05/27/2019 Outside Support Answer Date Recorded No 05/27/2019 Understanding Health Concerns Answer Da te Recorded No 05/27/2019 Financing Health Concerns Answer Date R ecorded No 05/27/2019 Missing School or Work Answer Date Yemi rded No 05/27/2019 Comments No Sex and Gender Information Value Date Recorded Sex Assigned at Not on file Legal Sex Female 4:09 PM EST Gender Identity Female 02/28/2021 1:22 PM EDT Sexual Orientation Not on file documented as of this encounter Miscellaneous Notes * Telephone Encounter - Gail Smallwood [place] - 02/24/2020 10:47 AM EDT Last HME was 05/27/2019. documented in this encounter Plan of Treatment Not on file documented as of this encounter Visit Diagnoses Diagnosis Acne vulgaris Other acne documented in this encounter Care Teams Psychiatry Resident Relationship Specialty Start Date End Date Vivienne King MD [address] [place] [address] [address] [place] [address] PCP - General Pediatrics 12/15/20 documented as of this encounter
--- OUTSIDE RECORDS SUMMARY | 2024-12-03 18:19 | XMS_ITS | Encounter Summary ---
Author Organization [facility] Address [address] [place] [address] Phone Care Team Providers Care System Architect Name Role Phone Vivienne King MD Primary Care Provider [phone] Reason for Visit * Reason Comments Med Refill Encounter Details Date Type Department Care Team (Late st Contact Info) Description 04/22/2020 Refill [facility], [address] [place] [address] Randall Aldrich MD Acne vulgaris Social History [...] Telephone Encounter - Gail Smallwood [place] - 04/25/2020 9:17 AM EDT Last HME was 05/27/2019, Med review was 07/28/2019. documented in this encounter Plan of Treatment Not on file documented as of this encounter Visit Diagnoses Diagnosis Acne vulgaris Other acne documented in this encounter Care Teams System Architect Relationship Specialty Start Date End Date Vivienne King MD [address] [place] [address] PCP - General Pediatrics 12/15/20 documented as of this encounter
--- OUTSIDE RECORDS SUMMARY | 2024-12-03 18:19 | XMS_ITS | Encounter Summary ---
Author Organization [facility] Address [address] [place] [address] Phone Care Team Providers Care Fiberglass Boat Finisher Name Role Phone Vivienne King MD Primary Care Provider [phone] Reason for Visit * Reason Comments Med Refill Encounter Details Date Type Department Care Team ([facility] st Contact Info) Description 11/27/2021 Refill [facility], [address] [place] [address] Randall Aldrich MD Encounter for surveillance of contraceptive pills Social History Tobacco Use Types Packs/Day Years Used Date Smoking Tobacco: Passive Smo ke Exposure - Never Smoker Hunger/Food Answer Date Recorded In the last 12 months, did y ou or your family ever eat less than you felt you should because there wasn't enough money for food? No 02/26/2021 Stable Housing Answer Date Recorded Are you worried that in the next 2 months you may not have stable housing? No 02/26/2021 Transportation Concerns Answer Date Rec orded In the last 12 months, have you or your family ever had to go without healthcare because you didn't have a way to get there? No 02/26/2021 Hazards in Home Answer Date Recorded Think about the place you li ve. Do you have problems with any of the following? Pests (mice or roaches), mold, no/not working smoke detectors, water leaks, no window guards. No 2020 Financing Utilities Answer Date Recorde d In the last 12 months, has t he electric, gas, oil, or water company threatened to shut off your services in your home? No 02/26/2021 Safety at Home Answer Date Recorded Are you or your family worried about feeling saf e in your home? No 02/26/2021 Outside Support Answer Date Recorded Do you feel that you need mo re support from other people or programs to help you care for yourself or your family? No 02/26/2021 Understanding Health Concerns Answer Da te Recorded Do you need help understandi ng your or your child's healthcare needs (diagnosis, medications, plan, etc.)? No 02/26/2021 Financing Health Concerns Answer Date R ecorded In the last 12 months, was t here a time when your child needed to see a doctor or get medications or supplies but could not because of cost? No 02/26/2021 Missing School or Work Answer Date Yemi rded Did you or your child miss s chool or work because of a health problem that could have been avoided? No 02/26/2021 Comments No Sex and Gender Information Value Date Recorded Sex Assigned at Not on file Legal Sex Female 4:09 PM EST Gender Identity Female 02/28/2021 1:22 PM EDT Sexual Orientation Not on file documented as of this encounter Miscellaneous Notes * Telephone Encounter - Chery Johnson [place] - 11/27/2021 2:26 PM EST [facility] 02/28/21. rx pended for pcp review documented in this encounter Plan of Treatment Not on file documented as of this encounter Visit Diagnoses Diagnosis Encounter for surveillance of contraceptive pills documented in this encounter Care Teams Fiberglass Boat Finisher Relationship Specialty Start Date End Date Vivienne King MD [address] [place] [address] PCP - General Pediatrics 12/15/20 documented as of this encounter
--- OUTSIDE RECORDS SUMMARY | 2024-12-03 18:19 | XMS_ITS | Encounter Summary ---
Author Organization [facility] Address [address] [place] [address] Phone Care Team Providers Care Bioprocess Engineer Name Role Phone Vivienne King MD Primary Care Provider [phone] Reason for Visit * Reason Comments Med Refill Encounter Details Date Type Department Care Team (Late st Contact Info) Description 11/21/2020 Refill [facility], [facility] [address] [facility] [address] [place] [address] Randall Aldrich MD Encounter for surveillance of contraceptive pills Social History Tobacco Use Types Packs/Day Years Used Date Smoking Tobacco: Passive Smo ke Exposure - Never Smoker Hunger/Food Answer Date Recorded No 06/25/2020 Stable Housing Answer Date Recorded No 06/25/2020 Transportation Concerns Answer Date Rec orded No 06/25/2020 Hazards in Home Answer Date Recorded No 08/10/2020 Financing Utilities Answer Date Recorde d No 08/10/2020 Safety at Home Answer Date Recorded No 08/10/2020 Outside Support Answer Date Recorded No 08/10/2020 Understanding Health Concerns Answer Da te Recorded No 08/10/2020 Financing Health Concerns Answer Date R ecorded No 08/10/2020 Missing School or Work Answer Date Yemi rded No 08/10/2020 Comments No Sex and Gender Information Value [...] pills documented in this encounter Care Teams Bioprocess Engineer Relationship Specialty Start Date End Date Vivienne King MD [address] [place] [address] [address] [place] [address] PCP - General Pediatrics 12/15/20 documented as of this encounter
== END 2024-12-03 15:12 | disposition home or self-care (01) ==
LOC: HO.HWS 14:48
PROVIDERS: PCP Pediatrics; Visit Provider Advanced Practice Midwife
DX: Z30.42 Encounter for surveillance of injectable contraceptive (principal)

== ENCOUNTER → 2024-12-03 14:48 | Outpatient (BNVA) | payer OTHER, SELFPAY | PROVIDERS: PCP Pediatrics; Visit Provider Advanced Practice Midwife | DX: Z30.09 Encounter for other general counseling and advice on contraception (principal) | CPT/HCPCS: 99211 ==

== ENCOUNTER 2025-01-06 14:52 | Outpatient (AMB) | payer OTHER, SELFPAY ==
[2025-01-06 14:48] VITALS: BP 100/62; BMI 20.7
--- NOTE | 2025-01-06 14:48 | MHC.OFFVIS ---
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 She is not really having any vp digital marketing concerns. She stopped the Depo because she did not like how it made her feel but she would like to get back on control pills she had trouble remembering them when she was younger teenager but she thinks she would be good now. Her periods started on December 19 and it lasted till December 26 but she just still had a little spotting that lingered. She was on the pills in the past for about 5 years She also gets very painful crampy periods so she would like that to be better She is interested in getting tested for STIs last time she was sexually active was a couple of months ago. [facility] Medical History Encounter for Depo-Provera contraception Social History Substance Use Type: Marijuana Female Reproductive History Menstrual Age of Menarche: 14 Duration of menses: 3-5 days Date of last menstrual period: 12/19/24 control method: none Total pregnancies: 0 Date of last pap smear: 11/08/23 (negative) Physical Exam Vital Signs: Last Vital Signs BP 100/62 01/06/25 14:48 BMI result Body Mass Index 20.7 Const General: healthy appearing, comfortable, no acute distress, well developed and alert Nutritional Appearance: average body habitus Orientation/consciousness: patient oriented x3 Limitations: no limitations HEENT Head: Yes normocephalic Neck Neck: Yes normal visual inspection Chest Chest palpation & inspection: normal inspection of the chest Breast/axilla inspection: normal inspection of the breasts and normal inspection of the axillae Breast/axilla palpation: normal palpation of the breasts and normal palpation of the axillae Resp Effort & Inspection: normal respiratory effort GI Inspection: Yes normal to inspection, No Abdominal wall edema and No distended Palpation (GI): Soft to palpation and nontender Other: Vagina pink and moist cervix nulliparous pink smooth healthy appearing with white mucus uterus small midposition mobile nontender adnexa nontender good muscle tone. General: Yes bladder normal to palpation External Female Exam: normal external appearance and normal appearance of the urethra Speculum Exam - Vagina: normal appearance of the vagina, normal palpation and normal vaginal discharge Speculum Exam - Cervix: normal appearance of the cervix, normal palpation and nontender Bimanual exam- vagina & uterus: normal bimanual exam, normal palpation, uterine size normal, bladder normal to palpation, consistency normal, normal palpation, uterine mobility normal, uterine shape normal, No Cervical tenderness present, non-tender and no cervical motion tenderness Bimanual Exam- Adnexa, other: normal adnexae, no masses, normal and No adnexal tenderness Neuro General: patient oriented x3 Assessment & Plan Assessment & Plan (1) Cervical cancer screening: Comment: 11/06/2023 Pap is negative. Code(s): Z12.4 - Encounter for screening for malignant neoplasm of cervix Category: Medical (2) Well woman exam with routine gynecological exam: Code(s): Z01.419 - Encounter for gynecological examination (general) (routine) without abnormal findings Category: Medical (3) control counseling: Code(s): Z30.09 - Encounter for other general counseling and advice on contraception Category: Medical (4) Counseling for initiation of control method: Code(s): Z30.09 - Encounter for other general counseling and advice on contraception Category: Medical Plan -----Discussed in this visit the following: healthy balanced diet, regular and consistent exercise, getting recommended health screens, doing the best she can for her particular health concerns, kegel exercises, pap smear screening and followup recommendations, mammography screening and SBE, normal changes in cycles in her life stage--- . Can benefits control pills as she is contemplating starting in the danger signs and what to do if she experienced them she does not smoke periods she was on pills before with no difficulty. So I will start the now had told her to start them with the beginning of her next period and I am giving her enough refills for year. And we will see her in 1 year. Medications: New desog-e.estradiol/e.estradiol 0.15-0.02 mgx21 /0.01 mg x 5 1 tab PO DAILY 84 tabs 4RF Coding Level of Care Code Est Pt Prev Care 18-39y(05086) Diagnoses Cervical cancer screening Z12.4 Well woman exam with routine gynecological exam Z01.419 control counseling Z30.09 Counseling for initiation of control method Z30.09
--- OUTSIDE RECORDS SUMMARY | 2025-01-06 17:03 | XMS_ITS | Encounter Summary ---
Author Organization [facility] Address [address] [place] [address] Phone Care Team Providers Care Jig Boring Machine Set Up Operator Name Role Phone Vivienne King MD Primary Care Provider [phone] Reason for Visit * Reason Comments Med Refill Encounter Details Date Type Department Care Team (Late st Contact Info) Description 01/02/2023 Refill [facility], [facility] [address] [address] [place] [address] Vivienne King MD [address] [facility] [address] [place] [address] Encounter for surveillance of contraceptive pills Social [...] - 01/02/2023 1:[address] [facility] on 03/07/22, has one scheduled 03/19/23. Multiple messages sent to schedule med review. To pcp for refusal documented in this encounter Plan of Treatment Not on file documented as of this encounter Visit Diagnoses Diagnosis Encounter for surveillance of contraceptive pills documented in this encounter Care Teams Jig Boring Machine Set Up Operator Relationship Specialty Start Date End Date Vivienne King MD [address] [place] [address] [address] [place] [address] PCP - General Pediatrics 12/15/20 documented as of this encounter
--- OUTSIDE RECORDS SUMMARY | 2025-01-06 17:03 | XMS_ITS | Clinical Summary ---
Author Organization [facility] Address [address] [place] [address] Phone Care Team Providers Care Bronze Plater Name Role Phone Vivienne King MD Primary Care Provider [phone] Allergies No known active allergies Medications medroxyPROGEST [...] or any suicidal thoughts. She met with Leah and will resume BH. Assessment & Plan [...] plans, no longer returning to school in [place] for the [place]. This has been a relief for her. Plan to continue same dose of medication without change at this time. Will regroup in 3 months. Assessment & Plan (03/07/2022 5:53 PM EDT): Increasing symptoms of anxiety and depression in past year. May be related to deep dissatisfaction and unhappiness with college at [employer]. She has moved back [...] - she will check with optometry in [place]. Marijuana use, continuous 03/07/2022 Assessment & Plan [...] 10/14/2020 12/21/19 Overview (10/10/2021): Diagnosed at [facility] 10/14/20. Tired but no other major symptoms. [...] reasonable. Provided another 3 month supply. Requested [facility] call at the end of those refills [...] short stature/ FTT with normal screening studies. 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 Appropriate growth velocity over time. Assessment & Plan (03/27/2018 4:43 PM EDT): Evaluated for short stature/ FTT with normal screening studies. [place] to be consistent with familial/ constitutional short [...] 03/19/2023, 04/2022, 02/28/2021 Procedures * Due to [place] state law, this organization might not be sharing sensitive test results. Procedure Name Priority Date/Time Associated Diagnosis Comments CHLAMYDIA GC AMP PROBE Routine 03/19/2023 11:53 AM EDT Encounter for well adult exam with abnormal findings from Last 3 Months or Most Recently Relevant to Health Maintenance Results * Due to [place] state law, this organization might not be sharing sensitive test results. * CHLAMYDIA GC AMP PROBE (03/19/2023 11:53 AM EDT) Chlamydia Trachomatis, Amplified NEGATIVE (NEG) [facility] Comment: No Chlamydia Trachomatis RNA detected in this patient's sample ? (REFERENCE RANGE/NORMAL VALUE: NOT DETECTED) ? Note: This test uses seed expert- mediated amplification method to detect rRNA from C. Trachomatis N.GONORRHOEAE AMP PROBE NEGATIVE (NEG) [facility] Comment: No Neisseria Gonorrhoeae RNA detected in this patient's sample ? (REFERENCE RANGE/NORMAL VALUE: NOT DETECTED) ? NOTE: This test uses seed expert-mediated amplification method to detect rRNA from N.Gonorrhoeae. [...] without risk of sexual abuse. Consult the [facility] if needed. Contact phone number . Therapeutic failure or success cannot be determined with the Aptima Combo2 assay since nucleic acid may persist following appropriate antimicrobial therapy. The Centers for Disease Control and Prevention (CDC) recommends confirmatory retesting using culture or a different nucleic acid amplification test when positive results occur, if indicated. CHLAM/GC AMP PROBE SPEC TYPE VAGINAL SPECIMEN [facility] Comment: Testing performed or reported by [facility], a Service of [facility], [facility] [address], [place] [address] Williams Adames MD, Transportation Operations Manager [facility]# [id number] 03/19/2023 11:5 3 AM EDT 03/19/2023 11:41 PM EDT Vivienne King MD LAB MICROBIOLOGY - GENERAL ORDER SHARON Final Result [facility] from Last 3 Months or Most Recently Relevant to Health Maintenance Insurance [facility] NON PCC AETNA [facility] NON [facility] Care Teams Bronze Plater Relationship Specialty Start Date End Date Vivienne Knig MD [address] [place] [address] PCP - General Pediatrics 12/15/20
--- OUTSIDE RECORDS SUMMARY | 2025-01-06 17:03 | XMS_ITS | Encounter Summary ---
Author Organization [facility] Address [address] [place] [address] Phone Care Team Providers Care Twitchell Operator Name Role Phone Vivienne King MD Primary Care Provider Reason for Visit * Reason Comments Med Refill Encounter Details Date Type Department Care Team (Late st Contact Info) Description 04/22/2020 Refill [facility], [address] [place] [address] Randall Aldrich MD Acne vulgaris Social History [...] acne documented in this encounter Care Teams Twitchell Operator Relationship Specialty Start Date End Date Vivienne King MD [address] [place] [address] PCP - General Pediatrics 12/15/20 documented as of this encounter
--- OUTSIDE RECORDS SUMMARY | 2025-01-06 17:03 | XMS_ITS | Encounter Summary ---
Author Organization [facility] Address [address] [place] [address] Phone Care Team Providers Care Director Search Name Role Phone Vivienne King MD Primary Care Provider Reason for Visit * Reason Comments Med Refill Encounter Details Date Type Department Care Team (Late st Contact Info) Description 02/19/2020 Refill [facility], [address] [place] [address] Randall Aldrich MD Acne vulgaris Social History [...] acne documented in this encounter Care Teams Director Search Relationship Specialty Start Date End Date Vivienne King MD [address] [place] [address] [address] [place] [address] PCP - General Pediatrics 12/15/20 documented as of this encounter
--- OUTSIDE RECORDS SUMMARY | 2025-01-06 17:03 | XMS_ITS | Encounter Summary ---
Author Organization [facility] Address [address] [place] [address] Phone Care Team Providers Care Special Forces Warrant Officer Name Role Phone Vivienne King MD Primary Care Provider [phone] Reason for Visit * Reason Comments Med Refill Encounter Details Date Type Department Care Team ([facility] st Contact Info) Description 11/27/2021 Refill [facility], [address] [place] [address] Randall Aldrich MD Encounter for surveillance of [...] Johnson [place] - 11/27/2021 2:26 PM EST [facility] 02/28/21. rx pended for pcp review documented in this encounter Plan of Treatment Not on file documented as of this encounter Visit Diagnoses Diagnosis Encounter for surveillance of contraceptive pills documented in this encounter Care Teams Special Forces Warrant Officer Relationship Specialty Start Date End Date Vivienne King MD [address] [place] [address] PCP - General Pediatrics 12/15/20 documented as of this encounter
--- OUTSIDE RECORDS SUMMARY | 2025-01-06 17:03 | XMS_ITS | Encounter Summary ---
Author Organization [facility] Address [address] [place] [address] Phone Care Team Providers Care Jewelry Sales Name Role Phone Vivienne King MD Primary Care Provider [phone] Encounter Details Date Type Department Care Team (Late st Contact Info) Description 09/29/2012 Orders Only [facility], [address] [place] [address] Social History Tobacco Use Types Packs/Day Years [...] on filedocumented in this encounter Care Teams Jewelry Sales Relationship Specialty Start Date End Date Vivienne King MD [address] [place] [address] [address] [place] [address] PCP - General Pediatrics 12/15/20 documented as of this encounter
--- OUTSIDE RECORDS SUMMARY | 2025-01-06 17:03 | XMS_ITS | Encounter Summary ---
Author Organization [facility] Address [address] [place] [address] Phone Care Team Providers Care Aging Room Hand Name Role Phone Vivienne King MD Primary Care Provider [phone] Reason for Visit * Reason Comments Med Refill Encounter Details Date Type Department Care Team (Late st Contact Info) Description 11/21/2020 Refill [facility], [facility] [address] [facility] [address] [place] [address] Randall Aldrich MD Encounter for surveillance of [...] pills documented in this encounter Care Teams Aging Room Hand Relationship Specialty Start Date End Date Vivienne King MD [address] [place] [address] [address] [place] [address] PCP - General Pediatrics 12/15/20 documented as of this encounter
== END 2025-01-06 15:44 | disposition home or self-care (01) ==
LOC: HO.HWSM 14:52
PROVIDERS: PCP Pediatrics; Visit Provider Advanced Practice Midwife
DX: Z01.419 Encounter for gynecological examination (general) (routine) without abnormal findings (principal); Z30.09 Encounter for other general counseling and advice on contraception
CPT/HCPCS: 99395; 99459

== ENCOUNTER 2025-01-06 14:52 | Outpatient (REF) | payer OTHER, SELFPAY ==
--- OUTSIDE RECORDS SUMMARY | 2025-01-06 17:38 | XMS_ITS | Encounter Summary ---
Author Organization [facility] Address [address] [place] [address] Phone Care Team Providers Care Rural Mail Contractor Name Role Phone Vivienne King MD Primary Care Provider [phone] Reason for Visit * Reason Comments Med Refill Encounter Details Date Type Department Care Team (Late st Contact Info) Description 01/02/2023 Refill [facility], [facility] [address] [address] [place] [address] Vivienne King MD [address] [facility] [address] [place] [address] Encounter for surveillance of contraceptive pills Social [...] [place] - 01/02/2023 1:26 PM EDT Last [facility] on 03/07/22, has one scheduled 03/19/23. Multiple messages sent to schedule med review. To pcp for refusal documented in this encounter Plan of Treatment Not on file documented as of this encounter Visit Diagnoses Diagnosis Encounter for surveillance of contraceptive pills documented in this encounter Care Teams Rural Mail Contractor Relationship Specialty Start Date End Date Vivienne King MD [address] [place] [address] [address] [place] [address] PCP - General Pediatrics 12/15/20 documented as of this encounter
--- OUTSIDE RECORDS SUMMARY | 2025-01-06 17:38 | XMS_ITS | Encounter Summary ---
Author Organization [facility] Address [address] [place] [address] Phone Care Team Providers Care Honing Machine Operator Name Role Phone Vivienne King MD Primary Care Provider [phone] Encounter Details Date Type Department Care Team (Late st Contact Info) Description 09/29/2012 Orders Only [facility], [address] [place] [address] Social History Tobacco Use Types Packs/Day Years [...] on filedocumented in this encounter Care Teams Honing Machine Operator Relationship Specialty Start Date End Date Vivienne King MD [address] [place] [address] [address] [place] [address] PCP - General Pediatrics 12/15/20 documented as of this encounter
--- OUTSIDE RECORDS SUMMARY | 2025-01-06 17:38 | XMS_ITS | Encounter Summary ---
Author Organization [facility] Address [address] [place] [address] Phone Care Team Providers Care Lime Mixer Name Role Phone Vivienne King MD Primary Care Provider [phone] Reason for Visit * Reason Comments Med Refill Encounter Details Date Type Department Care Team ([facility] st Contact Info) Description 11/27/2021 Refill [facility], [address] [place] [address] Randall Aldrich MD Encounter for surveillance of [...] Johnson [place] - 11/27/2021 2:26 PM EST [facility] 02/28/21. rx pended for pcp review documented in this encounter Plan of Treatment Not on file documented as of this encounter Visit Diagnoses Diagnosis Encounter for surveillance of contraceptive pills documented in this encounter Care Teams Lime Mixer Relationship Specialty Start Date End Date Vivienne King MD [address] [place] [address] PCP - General Pediatrics 12/15/20 documented as of this encounter
--- OUTSIDE RECORDS SUMMARY | 2025-01-06 17:39 | XMS_ITS | Encounter Summary ---
Author Organization [facility] Address [address] [place] [address] Phone Care Team Providers Care Dialysis Rn Name Role Phone Vivienne King MD Primary Care Provider [phone] Reason for Visit * Reason Comments Med Refill Encounter Details Date Type Department Care Team (Late st Contact Info) Description 04/22/2020 Refill [facility], [address] [place] [address] Randall Aldrich MD Acne vulgaris Social History [...] acne documented in this encounter Care Teams Dialysis Rn Relationship Specialty Start Date End Date Vivienne King MD [address] [place] [address] PCP - General Pediatrics 12/15/20 documented as of this encounter
--- OUTSIDE RECORDS SUMMARY | 2025-01-06 17:39 | XMS_ITS | Encounter Summary ---
Author Organization [facility] Address [address] [place] [address] Phone Care Team Providers Care Deblocker Name Role Phone Vivienne King MD Primary Care Provider [phone] Reason for Visit * Reason Comments Med Refill Encounter Details Date Type Department Care Team (Late st Contact Info) Description 11/21/2020 Refill [facility], [facility] [address] [facility] [address] [place] [address] Randall Aldrich MD Encounter for surveillance of [...] pills documented in this encounter Care Teams Deblocker Relationship Specialty Start Date End Date Vivienne King MD [address] [place] [address] [address] [place] [address] PCP - General Pediatrics 12/15/20 documented as of this encounter
--- OUTSIDE RECORDS SUMMARY | 2025-01-06 17:39 | XMS_ITS | Clinical Summary ---
Author Organization [facility] Address [address] [place] [phone] Phone Care Team Providers Care Cut Lace Machine Operator Name Role Phone Vivienne King MD Primary Care Provider [phone] Allergies No known active allergies Medications medroxyPROGEST [...] plans, no longer returning to school in [place] for the fall. This has been a relief for her. Plan to continue same dose of medication without change at this time. Will regroup in 3 months. Assessment & Plan (03/07/2022 5:53 PM EDT): Increasing symptoms of anxiety and depression in past year. May be related to deep dissatisfaction and unhappiness with college at [employer]. She has moved back home and will [...] - she will check with optometry in [place]. Marijuana use, continuous 03/07/2022 Assessment & Plan [...] 10/14/2020 12/21/19 Overview (10/10/2021): Diagnosed at [facility] 10/14/20. Tired but no other major symptoms. [...] reasonable. Provided another 3 month supply. Requested [facility] call at the end of those [...] short stature/ FTT with normal screening studies. 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 Appropriate growth velocity over time. Assessment & Plan (03/27/2018 4:43 PM EDT): Evaluated for short stature/ FTT with normal screening studies. [place] to be consistent with familial/ constitutional short [...] 03/19/2023, 04/2022, 02/28/2021 Procedures * Due to [place] state law, this organization might not be sharing sensitive test results. Procedure Name Priority Date/Time Associated Diagnosis Comments CHLAMYDIA GC AMP PROBE Routine 03/19/2023 11:53 AM EDT Encounter for well adult exam with abnormal findings from Last 3 Months or Most Recently Relevant to Health Maintenance Results * Due to [place] state law, this organization might not be sharing sensitive test results. * CHLAMYDIA GC AMP PROBE (03/19/2023 11:53 AM EDT) Chlamydia Trachomatis, Amplified NEGATIVE (NEG) [facility] Comment: No Chlamydia Trachomatis RNA detected in this patient's sample ? (REFERENCE RANGE/NORMAL VALUE: NOT DETECTED) ? Note: This test uses monorail operator- mediated amplification method to detect rRNA from C. Trachomatis N.GONORRHOEAE AMP PROBE NEGATIVE (NEG) [facility] Comment: No Neisseria Gonorrhoeae RNA detected in this patient's sample ? (REFERENCE RANGE/NORMAL VALUE: NOT DETECTED) ? NOTE: This test uses monorail operator-mediated amplification method to detect rRNA from N.Gonorrhoeae. [...] without risk of sexual abuse. Consult the [facility] if needed. Contact phone number . Therapeutic failure or success cannot be determined with the Aptima Combo2 assay since nucleic acid may persist following appropriate antimicrobial therapy. The Centers for Disease Control and Prevention (CDC) recommends confirmatory retesting using culture or a different nucleic acid amplification test when positive results occur, if indicated. CHLAM/GC AMP PROBE SPEC TYPE VAGINAL SPECIMEN [facility] Comment: Testing performed or reported by [facility], a Service of [facility] [address], [place] [address] Williams Adames MD, Title Clerk [employer] [facility]# [id number] 03/19/2023 11:5 3 AM EDT 03/19/2023 11:41 PM EDT Vivienne King MD LAB MICROBIOLOGY - GENERAL ORDER SHARON Final Result [facility] from Last 3 Months or Most Recently Relevant to Health Maintenance [facility] NON PCC AETNA [facility] NON [facility] Care Teams Cut Lace Machine Operator Relationship Specialty Start Date End Date Vivienne King MD [address] [place] [address] PCP - General Pediatrics 12/15/20
--- OUTSIDE RECORDS SUMMARY | 2025-01-06 17:39 | XMS_ITS | Encounter Summary ---
Author Organization [facility] Address [address] [place] [address] Phone Care Team Providers Care Warehouse Director Name Role Phone Vivienne King MD Primary Care Provider [phone] Reason for Visit * Reason Comments Med Refill Encounter Details Date Type Department Care Team (Late st Contact Info) Description 02/19/2020 Refill [facility], [address] [place] [address] Randall Aldrich MD Acne vulgaris Social History [...] acne documented in this encounter Care Teams Warehouse Director Relationship Specialty Start Date End Date Vivienne King MD [address] [place] [address] [address] [place] [address] PCP - General Pediatrics 12/15/20 documented as of this encounter
[2025-01-07 11:23] LABS: Bacterial Vaginosis PCR NEGATIVE (Negative); Candida Group PCR NOT DETECTED (Not Detect); Candida glab krusei PCR NOT DETECTED (Not Detect); Trichomonas vaginalis PCR NOT DETECTED (Not Detect)
[2025-01-07 11:54] LABS: CT PCR NOT DETECTED (Not Detect.); NG PCR NOT DETECTED (Not Detect.)
== END 2025-01-06 14:53 | disposition home or self-care (01) ==
LOC: HO.LAB 14:52
PROVIDERS: PCP Pediatrics; Visit Provider Advanced Practice Midwife
DX: Z01.419 Encounter for gynecological examination (general) (routine) without abnormal findings (principal); N89.8 Other specified noninflammatory disorders of vagina; Z20.2 Contact with and (suspected) exposure to infections with a predominantly sexual mode of transmission
CPT/HCPCS: 81515; 87491; 87591